=== PATIENT | female | born 1985 | race American Indian/Alaskan Native ===

== ENCOUNTER 2017-01-05 21:09 | Emergency (ER) | payer MEDICAID, OTHER ==
[2017-01-05 21:19] VITALS: BP 118/68
[2017-01-05] MEDS ORDERED: Clindamycin HCl 150 MG Cap PO ONE (21:28)
[2017-01-05] MEDS ORDERED: Acetaminophen/HYDROcodone 325-10 MG Tab PO ONE (21:28)
--- NOTE | 2017-01-05 21:32 | EDM.PDOC ---
ED HPI GENERAL MEDICAL PROBLEM - General Chief Complaint: ENT Problem Stated Complaint: TOOTH PAIN [id number] Time Seen by Provider: 01/05/17 21:28 Source of Information: Reports: Patient History Limitations: Reports: No Limitations - History of Present Illness INITIAL COMMENTS - FREE TEXT/NARRATIVE: s/p extraction today taking tramadol feels worse with increase swelling. Right Upper Gums Pain Score (Numeric/FACES): 9 - Related Data Allergies Allergy/AdvReac Type Severity Reaction Status Date / Time No Known Allergies Allergy Verified 01/05/17 21:19 Home Meds: Home Meds traMADol [Ultram] 50 mg PO Q4H 01/05/17 [History] Past Medical History - Past Health History Medical/Surgical History: Denies Medical/Surgical History Social & Family History - Tobacco Use Smoking Status *Q: Current Some Day Smoker Years of Tobacco use: 2 Packs/Tins Daily: 0.1 - Recreational Drug Use Recreational Drug Use: No ED ROS ENT - Review of Systems Review Of Systems: ROS reveals no pertinent complaints other than HPI. ED EXAM, ENT - Physical Exam Exam: See Below Exam Limited By: No Limitations General Appearance: Alert, WD/WN, Mild Distress, Other (tearful) Ears: Hearing Grossly Normal Mouth/Throat: Dental Pain, Dental Tenderness, Other (local edema) Head: Atraumatic Neck: Non-Tender, Full Range of Motion Respiratory/Chest: No Respiratory Distress Cardiovascular: Regular Rate, Rhythm GI/Abdominal: Soft, Non-Tender Neurological: Alert, Oriented, Normal Cognition, Normal Gait, No Motor/Sensory Deficits Psychiatric: Tearful Skin: Warm, Dry, Normal Color Lymphatic: No Adenopathy Course - Vital Signs Last Recorded V/S: Last Vital Signs Temp 36.3 C 01/05/17 21:16 Pulse 82 01/05/17 21:16 Resp 18 01/05/17 21:16 BP 118/68 01/05/17 21:16 Pulse Ox 99 01/05/17 21:16 - Orders/Labs/Meds Orders: Active Orders 24 hr Category Date Time Status Acetaminophen/HYDROcodone [[place] 325-10 MG] Med 01/05/17 21:28 Once 1 tab PO ONETIME ONE Clindamycin HCl [Cleocin] Med 01/05/17 21:28 Once 150 mg PO ONETIME ONE Departure - Departure Time of Disposition: 21:30 Disposition: Home, Self-Care 01 Condition: Good Clinical Impression: Dental caries, Dental abscess - Discharge Information Instructions: Dental Dry Socket, [id number] Additional Instructions: 1) avoid solid foods 2) follow up with Dentist rx given; clindamycin 150mg qid x 40 vicodin 5/325mg bid prn x 6 - My Orders Last 24 Hours: My Active Orders 01/05/17 21:28 Acetaminophen/HYDROcodone [[place] 325-10 MG] 1 tab PO ONETIME ONE Clindamycin HCl [Cleocin] 150 mg PO ONETIME ONE - Assessment/Plan Last 24 Hours: My Active Orders 01/05/17 21:28 Acetaminophen/HYDROcodone [[place] 325-10 MG] 1 tab PO ONETIME ONE Clindamycin HCl [Cleocin] 150 mg PO ONETIME ONE
== END 2017-01-05 21:37 | disposition home or self-care (01) ==
LOC: DL.ED 21:09
DX: K04.7 Periapical abscess without sinus (principal); K02.9 Dental caries, unspecified; F17.210 Nicotine dependence, cigarettes, uncomplicated
CPT/HCPCS: 99282; A9270

== ENCOUNTER 2017-04-07 14:13 | Emergency (ER) | payer SELFPAY ==
[2017-04-07 14:21] VITALS: BP 131/78
[2017-04-07] MEDS ORDERED: Lidocaine 2% Jelly 10 ML Urojet MUCMEM ONE (14:24)
[2017-04-07] MEDS ORDERED: Benzocaine 20% Oral Spray 59.2 ML Canister MUCMEM ONE (14:24)
--- NOTE | 2017-04-07 14:26 | EDM.PDOC ---
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 Bilateral Gums Pain Score (Numeric/FACES): 9 - Related Data Allergies Allergy/AdvReac Type Severity Reaction Status Date / Time No Known Allergies Allergy Verified 04/07/17 14:17 Home Meds: Home Meds traMADol [Ultram] 50 mg PO Q4H 01/05/17 [History] Past Medical History - Past Health History Medical/Surgical History: Denies Medical/Surgical History Social & Family History - Tobacco Use Smoking Status *Q: Current Some Day Smoker Years of Tobacco use: 2 Packs/Tins Daily: 0.1 - Recreational Drug Use Recreational Drug Use: No ED ROS ENT - Review of Systems Review Of Systems: See Below Constitutional: Reports: No Symptoms HEENT: Reports: Dental Pain (left side maxillary and mandible), Ear Pain (left) Respiratory: Reports: No Symptoms Cardiovascular: Reports: No Symptoms Endocrine: Reports: No Symptoms GI/Abdominal: Reports: No Symptoms : Reports: No Symptoms Musculoskeletal: Reports: No Symptoms Skin: Reports: No Symptoms Neurological: Reports: No Symptoms Psychiatric: Reports: No Symptoms Hematologic/Lymphatic: Reports: No Symptoms Immunologic: Reports: No Symptoms ED EXAM, ENT - Physical Exam Exam: See Below Exam Limited By: No Limitations General Appearance: Alert, WD/WN, No Apparent Distress Eye Exam: Bilateral Eye: EOMI, PERRL Ears: Normal External Exam, Normal Canal, Hearing Grossly Normal, Normal TMs Nose: Normal Inspection Mouth/Throat: Normal Inspection, Normal Gums, Dental Pain (left posterior maxillary and Mandible) Head: Atraumatic, Normocephalic Neck: Normal Inspection, Supple Respiratory/Chest: No Respiratory Distress, Lungs Clear Cardiovascular: Normal Peripheral Pulses, Regular Rate, Rhythm GI/Abdominal: Normal Bowel Sounds Extremities: Normal Inspection Neurological: Alert, Oriented, CN II-XII Intact Psychiatric: Normal Affect Skin: Warm, Dry, Intact Lymphatic: No Adenopathy Course - Vital Signs Last Recorded V/S: Last Vital Signs Temp 36.8 C 04/07/17 14:18 Pulse 55 L 04/07/17 14:18 Resp 16 04/07/17 14:18 BP 131/78 04/07/17 14:18 Pulse Ox 99 04/07/17 14:18 Departure - Departure Time of Disposition: 14:29 Disposition: Home, Self-Care 01 Condition: Good Clinical Impression: Toothache - Discharge Information Forms: ED Department Discharge Additional Instructions: Practice good oral hygiene : [place] teeth TID with Diluted Listerine Take the Oral Antibiotic as prescribed and complete: AMOXIL 500mg TID # 30 For Pain: Use the TOOTHBALLS as directed only ALSO: May use Tylenol ES 500mg QID F/U w/ DENTIST
== END 2017-04-07 14:34 | disposition home or self-care (01) ==
LOC: DL.ED 14:13
DX: K08.89 Other specified disorders of teeth and supporting structures (principal); F17.210 Nicotine dependence, cigarettes, uncomplicated
CPT/HCPCS: 99282